=== PATIENT | female | born 1995 | race Caucasian/White ===

== ENCOUNTER 2016-11-02 07:34 | Outpatient (CLI) | payer BC ==
--- OUTSIDE RECORDS SUMMARY | 2016-11-02 07:36 | XMS | Clinical Summary ---
:1995 Author Organization [facility] Address [address] [place] [address] Phone Care Team Providers Name Role Phone , Primary Care Provider Unavailable Allergies Not on File Current Medications Not on file Active Problems Not on file Social History Tobacco Use Types Packs/Day Years Used Date Never Assessed Sex Assigned at Date Recorded Not on file Last Filed Vital Signs Not on file Plan of Treatment Not on file Results Not on filefrom Last 3 Months
--- NOTE | 2016-11-03 09:59 | PFT ---
PATIENT HISTORY: HEIGHT: 64 INCHES WEIGHT: 160 LBS SMOKER: NO HOW LONG: PACKS PER DAY: PRODUCTIVE COUGH: LUNG DISEASE: HODGKINS LYMPHOMA PHYSICIAN INTERPRETATION FINAL REPORT: The test is compared to an identical study performed on 2016. Patient has clinical history of Hodgkin's lymphoma and has been treated with bleomycin. The FEV1 is 2.71 liters which is 84% predicted, FVC is 3.61 liters which is 90% predicted. Both of these values have considerably increased since the study from August. The total lung capacity is 4.68 liters which is 85% of predicted, and residual volume was 1.96 liters which is 131% predicted. Both these values have considerably increased since a study in August. The DLCO is 23.52 which is 101% predicted. This is improved from 18.45, (79%), which was obtained last August. IMPRESSION: This patient has seen a dramatic improvement in FEV1, total lung capacity, and DLCO since the previous study on 08/19/2016. Clearly some this is indicative of shrinkage of her tumor. There is no evidence that the bleomycin is affecting her DLCO at this time. De Icer Installer: DAVID Senior Advisory: DAVID TIERNEY
== END 2016-11-02 07:35 | disposition home or self-care (01) ==
LOC: CP 07:34
PROVIDERS: ATTEND Internal Medicine Hematology & Oncology
DX: C81.78 Other Hodgkin lymphoma, lymph nodes of multiple sites (principal); D50.8 Other iron deficiency anemias; R11.2 Nausea with vomiting, unspecified; Z79.899 Other long term (current) drug therapy
CPT/HCPCS: 94010; 94727; 94729

== ENCOUNTER 2016-11-22 17:07 | Observation (INO) | payer OTHER ==
[2016-11-22] MEDS ORDERED: Tranexamic Acid 650 MG TAB PO SCH ×2 (17:45→22:00)
[2016-11-22 17:51] LABS: Hematocrit 31.2 % (36.0-47.0); Mean Platelet Volume 8.1 fL (7.4-10.4); Red Blood Cell (RBC) Count 3.39 mill/uL (4.20-5.40); White Blood Cell (WBC) Count 28.1 thou/uL (4.8-10.8)
[2016-11-22 18:13] LABS: Anisocytosis SLIGHT = 6-15 cells (100X) (0-5/hpf); Band 18 % (5-11); Neutrophil 77 % (42-75); Ovalocytes SLIGHT = 2-5 cells (100X) (0-1/hpf); Polychromasia SLIGHT = 2-3 cells (100X) (0-2/hpf)
[2016-11-22 18:14] LABS: Bilirubin Negative (Negative); Blood, Urine Large (Negative); Glucose, Urine (Dipstick) Negative (Negative); Ketone, Urine Negative (Negative); Nitrite Negative (Negative); Protein, Urine (Dipstick) Negative (Neg-Trace); Urobilinogen 0.2 mg/dL (0.2-1.0)
[2016-11-22 18:16] LABS: Bacteria/HPF None Seen HPF (None Seen); Hyaline Casts/LPF 0-3 HYALINE CAST LPF (0-3 Hyaline); RBC/HPF GREATER THAN 50-TNTC HPF (0-3); Squamous Epithelial None Seen HPF (0-3); WBC/HPF 0-3 HPF (0-3)
[2016-11-22] MEDS ORDERED: Acetaminophen 325 MG TAB ONE (21:24)
[2016-11-22] MEDS ORDERED: medroxyPROGESTERone Acetate 5 MG TAB PO SCH (21:30)
[2016-11-22] MEDS ORDERED: Ondansetron ODT 4 MG TAB SL PRN (22:05)
[2016-11-22] MEDS ORDERED: Ondansetron HCl/PF 4 MG/2 ML Vial IVP PRN (22:05)
[2016-11-22] MEDS ORDERED: Acetaminophen 325 MG TAB PO PRN (22:05)
[2016-11-22 23:07] LABS: Hematocrit 27.4 % (36.0-47.0)
[2016-11-22] MEDS ORDERED: Aspirin/APAP/Caffeine Tab (Excedrin Migraine) PO PRN (23:24)
[2016-11-22] MEDS: Sodium Chloride 0.9% 1,000 ML IV SCH (23:41)
[2016-11-23] MEDS ORDERED: Tranexamic Acid 650 MG TAB PO SCH ×2 (02:00→09:00)
[2016-11-23 05:07] LABS: Anion Gap 8 mmol/L (10-20); BUN (Urea Nitrogen) 12 mg/dL (7.0-18.7); Calc. Creatinine Clearance 171 mL/min (70-130); Calcium 8.3 mg/dL (7.8-10.44); Carbon Dioxide 26 mmol/L (22-29); Chloride 108 mmol/L (98-107); Estimated GFR-MDRD Greater than 90
[2016-11-23 05:26] LABS: Band 21 % (5-11); Hematocrit 27.9 % (36.0-47.0); Mean Platelet Volume 8.1 fL (7.4-10.4); Neutrophil 73 % (42-75); Ovalocytes SLIGHT = 2-5 cells (100X) (0-1/hpf); Red Blood Cell (RBC) Count 3.01 mill/uL (4.20-5.40); White Blood Cell (WBC) Count 14.2 thou/uL (4.8-10.8)
[2016-11-23] MEDS: Sodium Chloride 0.9% 1,000 ML IV SCH (06:20)
[2016-11-23 07:54] VITALS: BP 112/55; TEMP 98.7
--- NOTE | 2016-11-23 08:17 | HP ---
DATE OF ADMISSION: 11/22/2016 DATE OF DISCHARGE: 11/23/2016 DISCHARGE DIAGNOSES: 1. Menometrorrhagia with heavy vaginal bleeding. 2. Anemia secondary to blood loss. 3. Hodgkin's lymphoma of the chest and neck. HOSPITAL COURSE: Montse is a 21-year-old white female patient well known to me who is status post 1 5 weeks primary low transverse section due to Hodgkin's lymphoma of the chest an d neck diagnosed during her . She is currently receiving chemotherapy with Dr. Leon and admitted with menometrorrhagia and a large amount of vaginal bleeding with anemia. Patient noted o sindy the last 2 months, she has been receiving chemotherapy with Dr. Leon and has noted vaginal bl eeding and spotting with each chemotherapy cycle. Subsequently, a vaginal ultrasound was ordered on 10/15/2016 which was within normal limits. Patient noted onset of very heavy bleeding on at 0300 o n the day of admission. Subsequently, contacted Dr. Leon's office who contacted our office. We prescribed oral contraceptive pills to be taken 2 pills b.i.d. for the next 5 days. Patient was con tacted approximately 4 hours later after receiving her first dose of medication and states that the bleeding has continued. She has had no clots, but continued with bright red heavy vaginal bleeding, recommended that she present to the emergency room for evaluation and admission. Noted hemoglobin with Dr. Leon on 11/18/2016 at 11.9 and in the emergency 10 on the evening of admission. She als o complained of feeling lightheaded, dizzy, and complained of a headache. PAST MEDICAL HISTORY: 1. Significant for primary low transverse section in 08/2016. 2. Status post laparoscopic surgery due to cyst of her fallopian tubes in [place] 2012. 3. Reconstructive hand surgery due to trauma in 2012. 4. History of intermittent angioedema. 5. 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 6. History of Hodgkin's lymphoma diagnosed in 06/2016. FAMILY HISTORY: Father living with multiple sclerosis. Mother living and healthy. SOCIAL HISTORY: She does not smoke or drink alcohol. She is currently engaged and lives in the [facility] area. ALLERGIES: Include DEMEROL, DILAUDID, NAPROXEN, and MORPHINE SULFATE. REVIEW OF SYSTEMS: As per HPI. PHYSICAL EXAMINATION: GENERAL: On initial physical exam, the following morning, she was alert and oriented, in no apparen t distress. VITAL SIGNS: Temperature 98.6, pulse was 71, blood pressure 105/56. Noted initial pulse arriving t o the floor of 102 and blood pressure 126/83. HEENT: Oropharynx without lesions. TMs normal. NECK: Supple without lymphadenopathy. LUNGS: Clear to auscultation. CARDIOVASCULAR: Regular rate and rhythm without murmur. ABDOMEN: Soft, nontender, no masses. PELVIC: Exam deferred at this time. EXTREMITIES: Noted no lower abdominal tenderness. No vaginal bleeding at this time. SIGNIFICANT LABORATORY STUDIES: Include an initial CBC with white count of 28, hemoglobin 10, hemat ocrit 31, and platelet count 131. Twelve hours later, hemoglobin 9.1, platelet count 112. Basic me tabolic panel within normal limits. ASSESSMENT AND PLAN: 1. Menometrorrhagia with heavy vaginal bleeding. 2. Anemia secondary to blood loss. 3. Hodgkin's lymphoma of the chest and neck, currently receiving chemotherapy. Patient is hemodyna mically stable at this time and vaginal bleeding has resolved after patient receiving p.o. Lysteda a nd Provera, will discharge home in good condition. MEDICATIONS: To include, 1. Lysteda 1300 mg p.o. q.8 hours over the next 4 days. 2. Provera 20 mg p.o. b.i.d. x4 days, then 20 mg daily x4 days, followed by institution of [facility] a to be taken daily as prescribed and will follow up in my office within the next 2 weeks.
[2016-11-23] MEDS ORDERED: medroxyPROGESTERone Acetate 5 MG TAB PO SCH (09:00)
[2016-11-23] MEDS ORDERED: FLU VACC QS2017-18 36 mo. & older 0.5 ML SYRINGE IM ONE (09:00)
--- OUTSIDE RECORDS SUMMARY | 2016-11-29 10:03 | XMS | Clinical Summary ---
:1995 Author Organization [facility] Address [address] [place] [address] Phone Care Team Providers Name Role Phone [...]
== END 2016-11-23 10:02 | disposition home or self-care (01) ==
LOC: ERS 17:07 → 3SE 21:52
PROVIDERS: ADMIT Family Medicine; ATTEND Family Medicine
DX: N92.1 Excessive and frequent menstruation with irregular cycle (principal); D50.0 Iron deficiency anemia secondary to blood loss (chronic); C81.91 Hodgkin lymphoma, unspecified, lymph nodes of head, face, and neck; C81.92 Hodgkin lymphoma, unspecified, intrathoracic lymph nodes; H91.8X2 Other specified hearing loss, left ear; Z79.3 Long term (current) use of hormonal contraceptives; Z79.899 Other long term (current) drug therapy; Z88.5 Allergy status to narcotic agent; Z98.890 Other specified postprocedural states; Z82.0 Family history of epilepsy and other diseases of the nervous system
CPT/HCPCS: 80048; 81003; 81015; 85025; 86850; 86900; 86901; 90471; 90682; 90732; 96360; 96361; A4216; G0008; G0009; G0378; Q2036

== ENCOUNTER 2017-01-25 09:16 | Outpatient (CLI) | payer OTHER ==
--- NOTE | 2017-01-25 15:23 | PET ---
NUCLEAR MEDICINE FDG PET CT: (Positron Emission Tomography) DATE: 01/25/17 HISTORY: 21-year-old female with Hodgkin's lymphoma, for restaging. COMPARISON: 08/14/16. TECHNIQUE: IV injection F-18 Fluorodeoxyglucose (FDG) dose: 11.7 mCi PET and attenuation-correction CT performed from skull base to proximal thighs. FINDINGS: SUV (standard uptake value) numbers given are maximum SUV's: The previously demonstrated very large anterior mediastinal mass, extending into the right neck, has dramatically decreased in size. Currently, there is no cervical component of the mass, except for a s mall portion posterior and superior to the head of the right clavicle. The mediastinal mass is no lynette jose hypermetabolic (SUV 1.8). There is no abnormally hypermetabolic activity anywhere in the neck, ch est, abdomen, or pelvis. IMPRESSION: 1. Complete response to chemotherapy. 2. Dramatic interval decrease in size of the mediastinal mass. Residual moderate size anterior media stinal mass remains, but it is no longer hypermetabolic (currently inactive). CHIKA Vieyra POS: ALLY
== END 2017-01-25 09:17 | disposition home or self-care (01) ==
LOC: PET 09:16
PROVIDERS: ATTEND Internal Medicine Hematology & Oncology
DX: C85.90 Non-Hodgkin lymphoma, unspecified, unspecified site (principal); J98.59 Other diseases of mediastinum, not elsewhere classified
CPT/HCPCS: 78815; A9552

== ENCOUNTER 2017-04-12 11:31 | Outpatient (CLI) | payer BC ==
[~2017-04-12 11:31] MED LIST: Iopamidol 370 76% 100 ML VIAL ONE
--- NOTE | 2017-04-12 12:53 | CT ---
CT ANGIO CHEST WITH IV CONTRAST: HISTORY: Hodgkin's disease. Shortness of breath. TECHNIQUE: Multiple axial tomograms obtained through the chest following pulmonary angio protocol with multiplan ar reconstruction and 3D post processing. FINDINGS: The pulmonary arteries show adequate opacification. No evidence of pulmonary embolus identified. The thoracic aorta is unremarkable. The lung alston are clear. No infiltrate or effusion. The mediastinum shows abnormal soft tissue density in the anterior mediastinum. This soft tissue den sity envelopes and narrows the brachiocephalic vein on the left, producing severe luminal stenosis. This presumably represents adenopathy, given the patient's history of Hodgkin's disease. Images through the upper abdomen are unremarkable. IMPRESSION: 1. No evidence of pulmonary embolus. 2. No acute lung process. 3. Abnormal soft tissue density in the anterior mediastinum, superiorly. This envelopes the left br achiocephalic vein and produces severe luminal narrowing within this vein. POS: ALLY
== END 2017-04-12 11:32 | disposition home or self-care (01) ==
LOC: CT 11:31
PROVIDERS: ATTEND Radiology Radiation Oncology
DX: C81.90 Hodgkin lymphoma, unspecified, unspecified site (principal); R07.9 Chest pain, unspecified; R06.02 Shortness of breath; I87.8 Other specified disorders of veins; M79.89 Other specified soft tissue disorders; Z92.21 Personal history of antineoplastic chemotherapy; Z92.3 Personal history of irradiation
CPT/HCPCS: 71275

== ENCOUNTER 2017-05-24 13:30 | Outpatient (CLI) | payer BC | END 2017-05-24 13:31 | disposition home or self-care (01) | LOC: ULT 13:30 | PROVIDERS: ATTEND Internal Medicine Hematology & Oncology | DX: Z51.11 Encounter for antineoplastic chemotherapy (principal); C81.78 Other Hodgkin lymphoma, lymph nodes of multiple sites; Z79.899 Other long term (current) drug therapy | CPT/HCPCS: 93306 ==

== ENCOUNTER 2017-05-26 13:36 | Outpatient (CLI) | payer BC ==
--- NOTE | 2017-05-26 17:06 | PET ---
NUCLEAR MEDICINE FDG PET CT: (Positron Emission Tomography) DATE: 05/26/17 HISTORY: 22-year-old female with Hodgkin's lymphoma, status post chemotherapy. Restaging. Increasing chest nakul n and dyspnea. COMPARISON: PET scan of 01/25/17. CT pulmonary angiogram of 04/12/17. TECHNIQUE: IV injection F-18 Fluorodeoxyglucose (FDG) dose: 9.3 mCi. PET and attenuation-correction CT performed from skull base to proximal thighs. FINDINGS: SUV (standard uptake value) numbers given are maximum SUV's: On the current CT, there is a new finding of a lobulated right lower lobe pulmonary nodule located sl ightly posterior to the inferior aspect of the right hilum. This measures approximately 2 x 1.5 cm. I t has SUV of 2.2. Again noted is the infiltrative soft tissue density material in the anterior mediastinum and right pa racardial region. SUV is 1.6 in the right paracardiac component of the mass. In the right retrosterna l, anterior mediastinal component of the mass, the SUV is 1.9 (For Deauville scoring purposes, the ba ckground mediastinal (blood pool) activity at the aortic root is 2.0; and that of liver is 2.5. The mediastinal mass uptake is less than that of blood pool and liver. There are no regions of abnormal FDG avidity in the neck, bilateral axillae, abdomen, or pelvis. The previously noted increased uptake throughout the bone marrow is no longer demonstrated on the current PET scan. IMPRESSION: 1. A new lobulated noncalcified, slightly less than 2 cm right lower lobe pulmonary nodule, with FDG uptake of 2.2. Uncertain whether this represents infection (pneumonia) or atypical manifestation of lymphoma. The fact that it is new since the CT angiogram of 04/12/17 makes it more likely to be a l ow grade infectious/inflammatory process with relatively low metabolic activity, but the exact etiolo gy is uncertain. 2. Excluding that pulmonary lesion, the Deauville score is 2 out of 5 for the infiltrative media stinal mass, i.e. complete response, with the caveat that the right pulmonary nodule is of uncertain etiology. CHIKA Vieyra POS: ALLY
== END 2017-05-26 13:37 | disposition home or self-care (01) ==
LOC: PET 13:36
PROVIDERS: ATTEND Internal Medicine Hematology & Oncology
DX: C81.90 Hodgkin lymphoma, unspecified, unspecified site (principal); R91.1 Solitary pulmonary nodule; J98.59 Other diseases of mediastinum, not elsewhere classified
CPT/HCPCS: 78815; A9552

== ENCOUNTER 2017-06-03 13:04 | Outpatient (CLI) | payer BC | END 2017-06-03 13:05 | disposition home or self-care (01) | LOC: BICULT 13:04 | PROVIDERS: ATTEND Family Medicine | DX: E01.0 Iodine-deficiency related diffuse (endemic) goiter (principal); E04.2 Nontoxic multinodular goiter | CPT/HCPCS: 76536 ==

== ENCOUNTER 2017-06-13 12:42 | Outpatient (CLI) | payer BC ==
--- NOTE | 2017-06-13 14:15 | CT ---
CT ANGIOGRAM OF THE CHEST: COMPARISON: 04/12/17. HISTORY: Pulmonary nodule. Shortness of breath. CORRELATION: PET imaging 05/26/17. TECHNIQUE: CT angiogram of the chest is performed in the axial plane. Coronal and bilateral oblique 3-dimension al reformatted images are submitted for interpretation. FINDINGS: Increased hypodensity along the right paratracheal and anterior mediastinal region, possibly represen ting bulky lymphadenopathy, measuring 6.0 x 2.8 cm (previously measuring 4.9 x 2.7 cm. Heart size is normal. No pericardial fluid. The thoracic aorta and upper abdominal aorta have a normal caliber. No periaortic fat stranding. Visualized upper solid organs are unremarkable. The gallbladder is surgically absent. Adequate contrast opacification of the pulmonary arterial system to the level of the segmental artery . No filling defect to imply thromboembolism. Tracheal and central bronchi are patent. Adequate aeration of the left upper lobe and left lower lob e. Adequate aeration of the right upper lobe and middle lobe. There is a ground-glass irregular nod ule in the posterior right lower lobe measuring 2.0 cm mediolateral x 1.6 cm anterior posterior (prev iously, this nodule measured 1.6 x 1.8 cm. No appreciable change when compared to the CT used for PE T imaging. Additional subtle ground-glass opacity is noted along the medial posterior right lower lo be, unchanged. No pneumothorax. No significant pleural effusion. There is a new spiculated possibl e satellite lesion in the superior segment of the right lower lobe measuring 0.8 cm. IMPRESSION: 1. Adequate contrast opacification of the pulmonary arterial system to the level of the segmental ar teries. No filling defects to suggest thromboembolism. 2. Persistent opacities in the right lower lobe without significant interval change when compared to a PET CT performed in May of 2017. 3. Stable abnormal hypoattenuation in the anterior mediastinum due to lymphadenopathy. 4. Spiculated nodule in the superior segment of the right lower lobe which may represent a new small satellite lesion. 5. Results of the study discussed with Dr. Leon 06/13/17 at 1:28 p.m. CODE CR POS: [facility]
== END 2017-06-13 12:43 | disposition home or self-care (01) ==
LOC: CT 12:42
PROVIDERS: ATTEND Internal Medicine Hematology & Oncology
DX: R91.1 Solitary pulmonary nodule (principal); R06.02 Shortness of breath; R91.8 Other nonspecific abnormal finding of lung field; R59.0 Localized enlarged lymph nodes
CPT/HCPCS: 71275

== ENCOUNTER 2017-12-23 08:34 | Outpatient (CLI) | payer BC ==
--- NOTE | 2017-12-23 10:25 | ULT ---
THYROID ULTRASOUND: HISTORY: Cystic nodule. COMPARISON: 07/03/2017. TECHNIQUE: Sagittal and transverse imaging of the thyroid gland is performed. FINDINGS: Thyroid isthmus measures 0.2 cm. The right thyroid lobe measures 1.4 x 1.3 x 4.5 cm. The left thyroid lobe measures 3.4 x 1.3 x 1.2 c m. There are multiple anechoic foci throughout the left and right thyroid lobes compatible with cysts. The largest cyst in the right thyroid lobe measures 0.3 x 0.4 x 0.2 cm. The largest cyst in the left thyroid lobe measures 0.4 x 0.2 x 0.1 cm. IMPRESSION: Multiple cystic lesions, subcentimeter in size, throughout the thyroid gland. TR score of 1. POS: ALLY
== END 2017-12-23 08:35 | disposition home or self-care (01) ==
LOC: BICULT 08:34
PROVIDERS: ATTEND Otolaryngology Otolaryngic Allergy
DX: E04.1 Nontoxic single thyroid nodule (principal)
CPT/HCPCS: 76536

== ENCOUNTER 2018-06-08 08:15 | Outpatient (CLI) | payer BC ==
[2018-06-08] MEDS ORDERED: ISOVUE-370 76%-LOCM 1 ML ONE (08:51)
--- NOTE | 2018-06-08 10:29 | CT ---
CONTRAST ENHANCED CT IMAGES CHEST AND ABDOMEN: HISTORY: Patient with history of Hodgkin's lymphoma. FINDINGS: Contrast-enhanced CT of the chest performed. The previously noted anterior superior mediastinal area of opacity is again seen. This area is small er in size and appears to have undergone some atrophic changes. This likely represents reducing supe rior mediastinal lymphadenopathy. There is an area of lingular opacity which has developed on axial image #45. This area was not prese nt on the previous exam and likely represents an area of lung parenchymal mass or scarring. The previously noted right lower lobe area of opacity has essentially resolved. Some granulomatous c hanges are seen as well as resolution of previously noted area of right lower lobe lung parenchymal o pacity. The liver and spleen are unremarkable. The gallbladder has been surgically removed. The pancreas is unremarkable. Adrenal glands and kidneys unremarkable. No evidence of paraaortic lymphadenopathy seen. IMPRESSION: 1. Decreased superior mediastinal area of soft tissue density. 2. Interval development of an area of opacity in the lingula of the lung. 3. Area of right lower lobe improving aeration. POS: C
== END 2018-06-08 08:16 | disposition home or self-care (01) ==
LOC: BICCT 08:15
PROVIDERS: ATTEND Internal Medicine Hematology & Oncology
DX: C81.78 Other Hodgkin lymphoma, lymph nodes of multiple sites (principal); D50.8 Other iron deficiency anemias; R11.2 Nausea with vomiting, unspecified
CPT/HCPCS: 71260; 74160; Q9966

== ENCOUNTER 2018-08-14 09:57 | Outpatient (CLI) | payer BC ==
--- NOTE | 2018-08-14 13:08 | CT ---
CT CHEST WITHOUT CONTRAST: Date: 08/14/18 PROVIDED CLINICAL HISTORY: Cough. FINDINGS: Comparison made with CT exam dated 06/08/18. Evaluation of the heart, pericardium, mediastinum, and great vessels is limited due to lack of IV con trast. There is soft tissue density again noted within the anterior mediastinum right of midline, aaron earing similar to the prior examination. The lungs are free of significant opacity. There is no pleural fluid or pneumothorax apparent. The airway appears patent and of normal caliber. The visualized portions of the upper abdomen demonstrate an unremarkable unenhanced CT appearance. No evidence for thoracic lymph node enlargement with limitations due to lack of IV contrast. The osseous structures demonstrate no concerning lytic or blastic lesions. IMPRESSION: 1. Stable appearing anterior mediastinal soft tissue density. 2. Resolution of lingular air space disease. POS: OFF
== END 2018-08-14 09:58 | disposition home or self-care (01) ==
LOC: BICCT 09:57
PROVIDERS: ATTEND Internal Medicine
DX: J98.11 Atelectasis (principal); K21.9 Gastro-esophageal reflux disease without esophagitis; J98.4 Other disorders of lung; J98.59 Other diseases of mediastinum, not elsewhere classified
CPT/HCPCS: 71250

== ENCOUNTER 2018-08-25 13:01 | Outpatient (CLI) | payer BC ==
[2018-08-25] MEDS ORDERED: Gadobenate Dimeglumine 529 MG/1 ML (20ML VIAL) ONE (13:42)
--- NOTE | 2018-08-25 14:24 | MRI ---
MRI Brain W WO Con: 08/25/2018 12:00 AM CLINICAL HISTORY: Seizure. COMPARISON: None. FINDINGS: Extra axial spaces: Normal in size and morphology for the patient's age. Acute infarction: None. Ventricular system: Normal in size and morphology for the patient's age. Basal cisterns: Normal. Cerebral parenchyma: Normal. Midline shift: None. Cerebellum: Normal. Brainstem: Normal. Paranasal sinuses:Extensive paranasal sinus opacification, most notable within the ethmoid sinus. The re is complex opacification with internal septation, mixed signal intensity and susceptibility. Intraaxial Enhancement: None IMPRESSION:No acute intracranial abnormality. Extensive, complex paranasal sinus opacification, notably within sphenoid sinus.
== END 2018-08-25 13:02 | disposition home or self-care (01) ==
LOC: BICMRI 13:01
PROVIDERS: ATTEND Family Medicine
DX: R56.9 Unspecified convulsions (principal); J32.3 Chronic sphenoidal sinusitis
CPT/HCPCS: 70553; A9577

== ENCOUNTER 2018-09-05 00:21 | Observation (INO) | payer BC ==
[2018-09-05 01:48] LABS: #Eosinphils 0.2 thou/uL (0.0-0.7); #Monocytes 0.5 thou/uL (0.11-0.59); #Neutrophils 10.2 thou/uL (1.40-6.50); %Basophils 0.2 % (0.0-1.0); %Eosinophils 1.2 % (0.0-10.0); %Lymphocytes 15.2 % (21.0-51.0); %Monocytes 3.9 % (0.0-10.0); %Neutrophils 79.5 % (42.0-75.0); Hemoglobin 14.4 g/dL (12.0-16.0); Mean Corpuscular HGB CONC 35.6 g/dL (32.0-36.0); Mean Corpuscular Hemoglobin 31.7 pg (27.0-31.0); Mean Corpuscular Volume 88.9 fL (78.0-98.0); Mean Platelet Volume 6.6 fL (7.4-10.4); Platelet Count 234 thou/uL (130-400); RBC Distribution Width 12.7 % (11.5-14.5); Red Blood Cell (RBC) Count 4.56 mill/uL (4.20-5.40); White Blood Cell (WBC) Count 12.9 thou/uL (4.8-10.8)
[2018-09-05 02:10] LABS: ALT (SGPT) 39 U/L (8-55); AST (SGOT) 26 U/L (5-34); Albumin 4.4 g/dL (3.5-5.0); Alkaline Phosphatase 51 U/L (40-150); Anion Gap 13 mmol/L (10-20); BUN (Urea Nitrogen) 12 mg/dL (7.0-18.7); Bilirubin, Total 0.3 mg/dL (0.2-1.2); Calc. Creatinine Clearance 0 mL/min (70-130); Calcium 9.9 mg/dL (7.8-10.44); Carbon Dioxide 25 mmol/L (22-29); Chloride 105 mmol/L (98-107); Estimated GFR-MDRD 83; Globulin 2.9 g/dL (2.4-3.5); Glucose 107 mg/dL (70-105); Potassium 3.6 mmol/L (3.5-5.1); Protein, Total 7.3 g/dL (6.0-8.3); Sodium 139 mmol/L (136-145)
[2018-09-05] MEDS ORDERED: Ondansetron PF 4 MG/2 ML Vial ONE (02:38)
[2018-09-05] MEDS ORDERED: cefTRIAXone\\ROCEPHIN 1 GM VIAL ONE (03:13)
[2018-09-05] MEDS ORDERED: Dexamethasone 10 MG/ML VIAL ONE (03:13)
[2018-09-05] MEDS ORDERED: levETIRAcetam 500 MG/100 ML PREMIX BAG ONE (03:13)
[2018-09-05 04:32] VITALS: BMI 28.8
[2018-09-05 04:32] LABS: Amphetamine Detected (NotDetected); Bacteria/HPF 1+ HPF (None Seen); Barbiturates Screen Not Detected (NotDetected); Benzodiazepine Screen Not Detected (NotDetected); Bilirubin Negative (Negative); Blood, Urine Trace (Negative); Clarity Clear (Clear); Cocaine Metabolite Screen Not Detected (NotDetected); Glucose, Urine (Dipstick) Normal (Negative); Leukocyte Negative Leu/uL (Negative); Medtox Control Line Valid? VALID (VALID); Medtox Reader # READER 1; Methadone Not Detected (NotDetected); Methamphetamine Not Detected (NotDetected); Nitrite Negative (Negative); Opiate Screen Not Detected (NotDetected); Oxycodone Screen Not Detected (NotDetected); Phencyclidine (PCP) Not Detected (NotDetected); Protein, Urine (Dipstick) Negative (Neg-Trace); RBC/HPF 0-3 HPF (0-3); THC/Cannabinoid Screen Not Detected (NotDetected); Tricyclic Screen Detected (NotDetected); Urobilinogen Normal mg/dL (Less than 2)
[2018-09-05 04:34] LABS: Pregnancy Test - Urine (BHCG) Negative (Negative); Pregu Control Background? CLEAR/WHITE (CLR/WHITE); Pregu Control Bar Appear? YES (CONTROL BAR); Specific Gravity 1.014 (1.002-1.036)
[2018-09-05] MEDS ORDERED: Ondansetron ODT 4 MG TAB SL PRN (04:52)
[2018-09-05] MEDS ORDERED: Sodium Chloride 0.9% 1,000 ML IV SCH ×2 (04:52→08:45)
[2018-09-05] MEDS ORDERED: Ondansetron PF 4 MG/2 ML Vial IVP PRN (04:52)
[2018-09-05] MEDS ORDERED: Ibuprofen 200 MG TAB PO PRN (05:11)
--- NOTE | 2018-09-05 08:11 | CT ---
PRELIMINARY REPORT/[facility]/EMERGENCY AFTER HOURS PROCEDURE: EXAM: CT Head Without Contrast EXAM DATE/TIME: 09/05/2018 12:55 AM CLINICAL HISTORY: 23 years old, female; Pain; Patient HX: Patient complaining of seizure activity today. . States new o nset. PT also C/O headache TECHNIQUE: Imaging protocol: Computed tomography images of the head without contrast. COMPARISON: No relevant prior studies available. FINDINGS: Brain: No brain edema. No intracranial hemorrhage. Ventricles: Normal. No ventriculomegaly. Bones/joints: Unremarkable. No acute fracture. Sinuses: Complete opacification of the right sphenoid sinus and part of the right posterior ethmoid s inus, suspicious for sinusitis. Mastoid air cells: Visualized mastoid air cells are well aerated. No mastoid effusion. Soft tissues: Unremarkable. IMPRESSION: 1. Complete opacification of the right sphenoid sinus and part of the right posterior ethmoid sinus, suspicious for sinusitis. 2. No acute brain findings. Thank you for allowing us to participate in the care of your patient. Dictated and Authenticated by: Zachary Menon MD 09/05/2018 1:52 AM Central Time ([place] & [place]) FINAL REPORT CT BRAIN WITHOUT CONTRAST: Date: 09/05/18 FINDINGS/IMPRESSION: I agree with the preliminary report given by Mayito. POS: OFF
[2018-09-05] MEDS ORDERED: diphenhydrAMINE 25 MG CAP PO PRN (08:39)
[2018-09-05] MEDS ORDERED: Acetaminophen 500 MG TAB PO PRN (08:39)
[2018-09-05] MEDS ORDERED: levETIRAcetam 500 MG TAB PO SCH ×2 (09:00→21:00)
[2018-09-05 09:52] LABS: Free T4 (Free Thyroxine) 0.87 ng/dL (0.70-1.48)
--- NOTE | 2018-09-05 14:59 | HP ---
CHIEF COMPLAINT: Seizure. HISTORY OF PRESENT ILLNESS: Ms. Montse Dumont is a very pleasant 23-year-old female with past medical history significant for Hodgkin lymphoma, status post treatment, in remission for the past year; migraine headaches; and recent episode of seizure 1 week ago, who presented back to the emergency department overnight after suffering a 2nd seizure. The patient states that she has been in her usual state of health up until last week. Around 1:20 a.m. on 08/23, she was up in the kitchen, helping take care of her 2-year-old son when she became lightheaded and dizzy. Her witnessed seizure activity, consistent with tonic-clonic seizure, although the patient had no loss of bowel or bladder or tongue biting. She saw her primary care physician, Dr. Carmella Larsen, the next day, who did order a brain MRI. Brain MRI performed on 08/25/2018, showed no acute intracranial abnormality. Also, there was extensive complex paranasal sinus opacification within the sphenoid sinus. Of note, the patient had been recently prescribed a very low dose of amitriptyline, 10 mg daily, for help with her chronic migraine headaches, which she had been taking. Approximately one week later, last night, the patient did have a 2nd episode of witnessed seizure activity, very similar to her 1st. She can have prodrome with a feeling of being lightheaded. She apparently dropped to the ground, and her witnessed seizure activity once again. She also had some associated diaphoresis when she came around. Both events, the patient cannot relay any details and does not remember them. She did have a mild postictal state of mild confusion after the event. She presented to the emergency department for further workup and treatment. In the emergency department, lab work was significant for a prolactin level of over 28. She did have a brain CT, which again demonstrated evidence of sinusitis with complete opacification of the right sphenoid sinus and part of the right posterior ethmoid sinus, suspicious for sinusitis. The patient was loaded with Keppra, and was also given 1 g of IV Rocephin along with IV fluids and Decadron. She was admitted to the hospitalist service for further workup and treatment. REVIEW OF SYSTEMS: The patient reports that she has had chronic migraine headaches, and this is why amitriptyline was recently prescribed. She reports that they are on the left side of her head, behind her eye with radiation towards the occiput. The patient reports some intermittent issues with asthma, for which she sees Dr. Paez. The patient also sees Dr. Aracelis Damian of ENT on a regular basis, and she tells me that he was the one who diagnosed her Hodgkin lymphoma. She received no treatment for her lymphoma at this point, but does see Dr. Leon regularly for repeat scans. Yesterday, the patient also received a prescription for Adderall. She has suffered from extreme fatigue in the past, and that is why this medication was prescribed. She did take a dose yesterday prior to her seizure activity. ALLERGIES: HYDROMORPHONE, MEPERIDINE, MORPHINE, CODEINE, AND NAPROXEN. HOME MEDICATIONS: 1. Amitriptyline 10 mg daily. 2. Albuterol one puff inhalation p.r.n. 3. Adderall, which is dextroamphetamine/amphetamine 15 mg p.o. daily as needed. 4. Aspirin/acetaminophen two tablets p.o. b.i.d. p.r.n. headache. PAST MEDICAL HISTORY: 1. Hodgkin lymphoma of head and neck status post chemo and radiation. 2. History of migraine headache. SURGICAL HISTORY: The patient has had a history of laparoscopic abdominal surgery. FAMILY HISTORY: Positive for multiple sclerosis in her father. No history of cancers. No history of premature coronary artery disease. No history of seizures. SOCIAL HISTORY: The patient is originally from [place], and moved here in 2013. She is and her works at [employer] in [employer]. She has one 2-year-old son and states that her lymphoma was actually diagnosed when she was 30 weeks . She has no history of drug abuse or smoking. She does not drink any alcohol. PHYSICAL EXAMINATION: VITAL SIGNS: Blood pressure is 120/79, temperature 98.4, pulse is 113, and O2 saturation is 99% on room air. GENERAL: This is a well-appearing female, resting comfortably in bed, in no acute distress. HEENT: Head is atraumatic and normocephalic. Mucous membranes are moist. NECK: Trachea is midline. No JVD. No carotid bruit. CV: S1 and S2. Regular rhythm, mildly tachycardic. No appreciable murmurs, rubs, or gallops. LUNGS: Regular respiratory rate and pattern. Clear to auscultation bilaterally. ABDOMEN: Positive bowel sounds. Soft and nontender. EXTREMITIES: No edema. SKIN: Warm and dry. NEUROLOGIC: Cranial nerves 2 through 12 are grossly intact. The patient is nonfocal. LABORATORY DATA: White blood cell count 12.9, hemoglobin 14.4, hematocrit 40.6, and platelet count is 234. Sodium 139, potassium 3.6, BUN 12, creatinine 0.84, and glucose 107. AST, ALT, and alkaline phosphatase all within normal limits. Free T4 is 0.87 and TSH 1.0184. Prolactin 27.84. Urinalysis shows trace amount of blood, 4-6 wbc. Urine test was negative. Her tox screen was positive for tricyclics and amphetamines. ASSESSMENT: 1. Tonic-clonic seizure activity, with prodrome and postictal state, unclear trigger/etiology. The patient recently given a prescription for amitriptyline and Adderall. 2. Sinusitis of right sphenoid and ethmoid per MRI, relatively asymptomatic. The patient denies any sinus pain, pressure, fever, or drainage. 3. History of lymphoma, in remission. 4. Sinus tachycardia in the setting of a prescription amphetamine/stimulant. 5. Mild leukocytosis, questionably secondary to sinusitis versus reactive in the setting of seizure activity. PLAN: At this time, we will continue Keppra 500 mg p.o. b.i.d. and await Neurology recommendations, who have been consulted. We will go ahead and treat her presumed sinusitis with Rocephin. May consider an ENT consult. It is unclear if findings of her sinusitis are related to her seizure activity or whether possibly new medications could be a trigger. We will continue to monitor the patient closely and await Neurology recommendations. Job ID: [id number]
[2018-09-05 15:33] VITALS: BP 115/66; TEMP 98
--- NOTE | 2018-09-05 16:48 | CON ---
DATE OF CONSULTATION: 09/05/2018 CONSULTING PHYSICIAN: Hospitalist Service. IMPRESSION: Recurrent seizures with negative workup. PLAN: 1. Continue Keppra 500 mg twice a day. 2. Outpatient neurologic followup. HISTORY OF PRESENT ILLNESS: Ms. Dumont is a 23-year-old young woman, who was admitted after her 2nd seizure, first one occurred about a week ago. She had a slight prodromal aura before she lost consciousness. She awoke quickly after the event and has had no significant postictal confusion. She had a recurrent event about a week later and was subsequently admitted. Both events occurred late at night. She had not had any changes in medication. She had an MRI done prior to this admission, which showed extensive sinus disease, but no significant neurologic problems. Her echocardiogram shows a 55% to 60% ejection fraction. Her prolactin level was 27. Drug screen was positive for tricyclics and amphetamines. PAST HISTORY: Lymphoma. FAMILY HISTORY: Noncontributory. ALLERGIES: CODEINE, HYDROCODONE, DEMEROL, MORPHINE, AND NAPROXEN. MEDICATION LIST: Reviewed. REVIEW OF SYSTEMS: Ten-system review of systems is otherwise unremarkable. PHYSICAL EXAMINATION: GENERAL: She is a healthy-appearing pleasant young woman, sitting in bed, in no distress. VITAL SIGNS: Have been stable. She is afebrile. HEENT: Pupils are equal. Conjunctivae are clear. Oropharynx clear. NECK: Supple. No lymphadenopathy. EXTREMITIES: No cyanosis. NEUROLOGIC: She is alert and appropriate. Her speech is fluent and clear. Cranial nerves II through XII are intact. There is equal strength. Sensations intact to light touch. She can walk independently. No abnormal movements were seen. SUMMARY: I agree with your management. Her EEG was normal and therefore this appears to be a complex partial seizure with secondary generalization. She plans to move out of town and will follow up with a neurologist elsewhere. Job ID: [id number]
--- NOTE | 2018-09-06 00:39 | DIS ---
DATE OF ADMISSION: 09/05/2018 DATE OF DISCHARGE: 09/05/2018 CHIEF COMPLAINT ON ADMISSION: Seizure. DISCHARGE DIAGNOSES: 1. Complex partial seizure with secondary generalization, EEG normal. 2. Recent prescription of amitriptyline and Adderall, questionably contributing. 3. Sinusitis of right sphenoid and ethmoid per MRI, relatively asymptomatic. The patient denies any sinus pain, pressure, fever, or drainage. 4. History of Hodgkin lymphoma, status post treatment in remission. 5. Sinus tachycardia in the setting of prescription amphetamine/stimulant. 6. Mild leukocytosis, questionably secondary to sinusitis versus reactive in the setting of seizure activity. BRIEF HOSPITAL COURSE: Ms. Dumont is a pleasant 23-year-old female with past medical history significant for Hodgkin lymphoma status post treatment in remission for the past year, migraine headaches, and recent episode of seizure one week ago, who presented back to the emergency department over and after suffering a second seizure. The patient stated that she was in her usual state of health until last week around 1:20 a.m. on August 23, she was up in the kitchen, when she became lightheaded and dizzy. Her witnessed her seizure activity. She became unconscious and had some jerking movements. She had no loss of bowel or bladder or tongue biting. She saw her primary care physician the next day, who did order an MRI which showed extensive complex paranasal sinus opacification within the sphenoid sinus. No further workup was advised at that time, although patient was advised to go to the emergency department if she suffered another seizure. The patient did indeed suffer another seizure prior to the night of her admission. She again felt a prodrome of lightheadedness, she got to the Sr and has no witnessed seizure activity began. She had some associated diaphoresis. She had some mild postictal confusion, but quickly recovered. She was admitted to the emergency department for further workup and treatment. Lab work was significant for prolactin level of over 27. She did have a CT, which again demonstrated evidence of sinusitis with complete opacification of the right sphenoid sinus and part of the right posterior ethmoid sinus, suspicious for sinusitis. In the emergency department, the patient was loaded with Keppra and was also given 1 g of IV Rocephin along with IV fluids and Decadron. She was admitted to the hospitalist service for further workup and treatment. Dr. Melo of Neurology was consulted. EEG showed no abnormalities. The patient was continued on oral Keppra 500 mg b.i.d. She had no further seizure activity during her hospitalization. Dr. Melo agreed with outpatient treatment and discharged with outpatient therapy. The patient feels well. She denies any fever. She denies any chest pain, shortness of breath, or any other systemic symptoms. She has ambulated the halls without issue. DISCHARGE DISPOSITION: Home. DISCHARGE CONDITION: Stable. DISCHARGE INSTRUCTIONS AND FOLLOWUP: The patient will follow up with Dr. Melo of Neurology as an outpatient. She also sees Dr. Aracelis Damian of ENT regularly and she will follow up with him as well regarding findings of CT and brain MRI revealing opacification and sinusitis. New medications on discharge will be amoxicillin 875 mg b.i.d. for the next 7 days. She will also continue Keppra 500 mg p.o. b.i.d. After extensive conversation with the patient, she has been prescribed amitriptyline and Adderall, both of which can trigger and instigate seizures. I have advised her to stop both of these medications and follow up with her primary care physician, Dr. Carmella Larsen, in regard to other avenues of treatment, particularly for her migraine headaches. I have advised her not to drive until cleared by Neurology. She understands all of these recommendations and will be compliant with followup. She will be discharged today in stable condition. Job ID: [id number]
[2018-09-06] MEDS ORDERED: cefTRIAXone\\ROCEPHIN 1 GM in Sodium Chloride 0.9% 100 ML IVPB SCH (03:00)
--- NOTE | 2018-09-08 08:45 | EEG ---
Referring Physician: Kae FARIA EEG # [id number] TEST TYPE: ROUTINE PORTABLE INPATIENT REPORT: AN EEG USING THE [employer]NATIONAL TEN-TWENTY SYSTEM OF ELECTRODE PLACEMENT WAS PERFORMED. The waking background is a medium amplitude 10 hertz alpha frequency. The patient remained awake throughout the study. Hyperventilation and photic stimulation were unremarkable. No epileptiform features were seen. IMPRESSION: THIS IS A NORMAL AWAKE EEG. Hand Flatwork Finisher: SHAHRIAR Clinical Services Consultant: DEIDRA TIERNEY
== END 2018-09-05 18:15 | disposition home or self-care (01) ==
LOC: ERS 00:21 → 2SE 04:14
PROVIDERS: ADMIT Family Medicine; ATTEND Family Medicine
DX: G40.209 Localization-related (focal) (partial) symptomatic epilepsy and epileptic syndromes with complex partial seizures, not intractable, without status epilepticus (principal); G43.909 Migraine, unspecified, not intractable, without status migrainosus; J32.2 Chronic ethmoidal sinusitis; J01.30 Acute sphenoidal sinusitis, unspecified; C85.90 Non-Hodgkin lymphoma, unspecified, unspecified site; D72.829 Elevated white blood cell count, unspecified; Z79.899 Other long term (current) drug therapy; Z88.5 Allergy status to narcotic agent; Z88.8 Allergy status to other drugs, medicaments and biological substances
CPT/HCPCS: 36415; 70450; 80053; 80306; 81003; 81015; 81025; 83735; 84146; 84439; 84443; 85025; 95816; 95819; 96361; 96365; 96375; G0378; J0696; J1100; J1953; J2405